=== PATIENT | female | born 1980 | race American Indian/Alaskan Native ===

== ENCOUNTER 2018-06-30 09:13 | Emergency (ER) | payer SELFPAY ==
[2018-06-30 09:27] VITALS: BP 143/97
[2018-06-30 10:23] LABS: HCG Qualitative,Urine Negative (Negative)
[2018-06-30 10:27] LABS: Bacteria,Urine 2+ /HPF (Negative); Bilirubin,Urine NEG (Negative); Blood,Urine LG (Negative); Color,Urine Yellow (Yellow); Mucus,Urine 2+ /HPF
[2018-06-30 10:30] LABS: RBC,Urine > 182.0 /HPF (0.0-6.0)
--- NOTE | 2018-06-30 10:40 | Emergency Department Report ---
ED Female HPI - General Chief complaint: Abdominal Pain Stated complaint: LOWER ABD/BACK PAIN Time Seen by Provider: 06/30/18 09:37 Source: patient Mode of arrival: Ambulatory Limitations: No Limitations - History of Present Illness Initial comments: Patient is a 37-year-old [place] female who is presenting with mild suprapubic discomfort and urinary frequency for the past 2 days. Patient denies any nausea vomiting diarrhea. Patient states there is no vaginal discharge at this time. Patient does also have some urinary frequency and states only a small amount of urine is able to be passed at a time but she is going very frequently. Patient states the lower abdominal discomfort as 4 out of 10 in severity. - Related Data Previous Rx's Medication Instructions Recorded Last Taken Type Nitrofurantoin Monohyd/M-Cryst 100 mg PO BID #14 capsule 06/30/18 Unknown Rx [Macrobid 100 mg Capsule] Phenazopyridine [Pyridium] 100 mg PO TID 2 Days tab 06/30/18 Unknown Rx Allergies Allergy/AdvReac Type Severity Reaction Status Date / Time pineapple Allergy Swelling Verified 06/30/18 09:25 ED Review of Systems ROS: Stated complaint: LOWER ABD/BACK PAIN Other details as noted in HPI Comment: All other systems reviewed and negative ED Past Medical Hx - Past Medical History Previous Medical History?: No - Surgical History Additional Surgical History: polyps removed from fallopian tubes - Social History Smoking Status: Never Smoker Substance Use Type: None - Medications Home Medications: Home Medications Medication Instructions Recorded Confirmed Last Taken Type Nitrofurantoin Monohyd/M-Cryst 100 mg PO BID #14 capsule 06/30/18 Unknown Rx [Macrobid 100 mg Capsule] Phenazopyridine [Pyridium] 100 mg PO TID 2 Days tab 06/30/18 Unknown Rx ED Physical Exam - General Limitations: No Limitations General appearance: alert, in no apparent distress - Head Head exam: Present: atraumatic, normocephalic - Eye Eye exam: Present: normal appearance - ENT ENT exam: Present: mucous membranes moist - Neck Neck exam: Present: normal inspection - Respiratory Respiratory exam: Present: normal lung sounds bilaterally. Absent: respiratory distress, wheezes, rales, rhonchi, stridor - Cardiovascular Cardiovascular Exam: Present: regular rate, normal rhythm. Absent: systolic murmur, diastolic murmur, rubs, gallop - GI/Abdominal GI/Abdominal exam: Present: soft, normal bowel sounds. Absent: distended, tenderness, guarding, rebound - Extremities Exam Extremities exam: Present: normal inspection - Back Exam Back exam: Present: normal inspection - Neurological Exam Neurological exam: Present: alert, oriented X3 - Psychiatric Psychiatric exam: Present: normal affect, normal mood - Skin Skin exam: Present: warm, dry, intact, normal color. Absent: rash ED Course Vital Signs 06/30/18 09:25 Temperature 98.6 F Pulse Rate 78 Respiratory 18 Rate Blood Pressure 143/97 O2 Sat by Pulse 98 Oximetry ED Medical Decision Making - Lab Data Lab Results 06/30/18 Range/Units 10:00 Urine Color Yellow (Yellow) Urine Turbidity Cloudy (Clear) Urine pH 6.0 (5.0-7.0) Ur Specific [place] 1.023 (1.003-1.030) Urine Protein 100 mg/dl (Negative) mg/dL Urine Glucose (UA) Neg (Negative) mg/dL Urine Ketones Neg (Negative) mg/dL Urine Blood Lg (Negative) Urine Nitrite Neg (Negative) Ur Reducing Substances Not Reportable Urine Bilirubin Neg (Negative) Urine Ictotest Not Reportable Urine Urobilinogen 4.0 (<2.0) mg/dL Ur Leukocyte Esterase Sm (Negative) Urine WBC (Auto) 9.0 H (0.0-6.0) /HPF Urine RBC (Auto) > 182.0 (0.0-6.0) /HPF U Epithel Cells (Auto) 8.0 (0-13.0) /HPF Urine Bacteria (Auto) 2+ (Negative) /HPF Urine Mucus 2+ /HPF Urine HCG, Qual Negative (Negative) - Medical Decision Making She does have a mild urinary tract infection per laboratory studies. Patient was started on Macrobid admits for symptomatic relief and will be discharged home. Critical care attestation.: If time is entered above; I have spent that time in minutes in the direct care of this critically ill patient, excluding procedure time. ED Disposition Clinical Impression: Acute cystitis Qualifiers: Hematuria presence: with hematuria Qualified Code(s): N30.01 - Acute cystitis with hematuria Disposition: TO HOME OR SELFCARE Is pt being admited?: No Does the pt Need Aspirin: No Condition: Stable Instructions: Urinary Tract Infection in Women (ED) Referrals: PRIMARY CARE, [Primary Care Provider] - 3-5 Days Time of Disposition: 10:44
== END 2018-06-30 10:54 | disposition home or self-care (01) ==
LOC: ED 09:13
DX: N30.01 Acute cystitis with hematuria (principal); Z91.018 Allergy to other foods
CPT/HCPCS: 81001; 81025; 99283

== ENCOUNTER 2020-11-18 22:35 | Emergency (ER) | payer MEDICAID ==
[2020-11-18 23:05] VITALS: BP 146/94
[2020-11-18] MEDS ORDERED: diphenhydrAMINE 50 MG/ML VIAL IV ONE (23:11)
[2020-11-18] MEDS ORDERED: SODIUM CHLORIDE 0.9% 1000 ML 1,000 ML IV ONE (23:11)
[2020-11-18] MEDS ORDERED: METOCLOPRAMIDE 10 MG/2 ML INJ IV ONE (23:11)
[2020-11-18] MEDS ORDERED: FAMOTIDINE 20 MG/2 ML INJ IV ONE (23:11)
--- NOTE | 2020-11-18 23:13 | Emergency Department Report ---
ED N/V/D HPI - General Chief complaint: Nausea/Vomiting/Diarrhea Stated complaint: 7 1/2WKS PREG; VOMITING BLOOD Source: patient Mode of arrival: Ambulatory Limitations: No Limitations - History of Present Illness Initial comments: Patient is a A2 29-year-old -[place] female with no past medical history and who is approximately 7 weeks gestation presents to the ED with complaint of acute onset persistent intractable nausea and vomiting with lower abdominal pain for the last 2 days. Patient states that she has not been able to keep anything down including fluids and food because of persistent severe intractable nausea and vomiting. Patient denies vaginal bleeding, dizziness, syncope, headache, chest pain, shortness of breath, sore throat, back pain, dysuria, urinary frequency and urgency, vaginal discharge, low back pain, diarrhea or hematemesis. MD complaint: nausea, vomiting, abdominal pain -: Sudden, days(s) (2) Description of Vomiting: food contents, watery Associated Abdominal Pain: Yes (Lower) Location: diffuse Radiation: none Severity: severe Pain Scale: 7 Quality: cramping, aching, sharp Consistency: constant Improves with: none Worsens with: eating, vomiting Context: other (7 weeks gestation) Associated Symptoms: denies other symptoms, myalgias, headaches, loss of appetite, malaise, nausea/vomiting. denies: chest pain, cough, diaphoresis, fever/chills, rash, dysuria, shortness of breath, syncope, weakness - Related Data Previous Rx's Medication Instructions Recorded Last Taken Type Nitrofurantoin Monohyd/M-Cryst 100 mg PO BID #14 capsule 06/30/18 Unknown Rx [Macrobid 100 mg Capsule] Phenazopyridine [Pyridium] 100 mg PO TID 2 Days tab 06/30/18 Unknown Rx Famotidine [Pepcid] 20 mg PO BID #60 tablet 11/19/20 Unknown Rx Metoclopramide [Reglan] 10 mg PO TID PRN #30 tab 11/19/20 Unknown Rx Promethazine [Phenergan] 25 mg MI Q6HR PRN #20 supp.rect 11/19/20 Unknown Rx Allergies Allergy/AdvReac Type Severity Reaction Status Date / Time pineapple Allergy Swelling Verified 06/30/18 09:25 ED Review of Systems ROS: Stated complaint: 7 1/2WKS PREG; VOMITING BLOOD Other details as noted in HPI Constitutional: denies: chills, fever Eyes: denies: eye pain, eye discharge, vision change ENT: denies: ear pain, throat pain Respiratory: denies: cough, shortness of breath, wheezing Cardiovascular: denies: chest pain, palpitations Endocrine: no symptoms reported Gastrointestinal: abdominal pain, nausea, vomiting. denies: diarrhea Genitourinary: denies: urgency, dysuria, discharge Musculoskeletal: denies: back pain, joint swelling, arthralgia Skin: denies: rash, lesions Neurological: denies: headache, weakness, paresthesias Psychiatric: denies: anxiety, depression Hematological/Lymphatic: denies: easy bleeding, easy bruising ED Past Medical Hx - Past Medical History Previous Medical History?: No - Surgical History Past Surgical History?: Yes Additional Surgical History: polyps removed from fallopian tubes - Social History Smoking Status: Never Smoker Substance Use Type: None - Medications Home Medications: Home Medications Medication Instructions Recorded Confirmed Last Taken Type Nitrofurantoin Monohyd/M-Cryst 100 mg PO BID #14 capsule 06/30/18 Unknown Rx [Macrobid 100 mg Capsule] Phenazopyridine [Pyridium] 100 mg PO TID 2 Days tab 06/30/18 Unknown Rx Famotidine [Pepcid] 20 mg PO BID #60 tablet 11/19/20 Unknown Rx Metoclopramide [Reglan] 10 mg PO TID PRN #30 tab 11/19/20 Unknown Rx Promethazine [Phenergan] 25 mg MI Q6HR PRN #20 supp.rect 11/19/20 Unknown Rx ED Physical Exam - General Limitations: No Limitations General appearance: alert, in no apparent distress - Head Head exam: Present: atraumatic, normocephalic, normal inspection - Eye Eye exam: Present: normal appearance, PERRL, EOMI Pupils: Present: normal accommodation - ENT ENT exam: Present: normal exam, normal orophraynx, mucous membranes moist, TM's normal bilaterally, normal external ear exam - Neck Neck exam: Present: normal inspection, full ROM - Respiratory Respiratory exam: Present: normal lung sounds bilaterally. Absent: respiratory distress, wheezes, rales, rhonchi, chest wall tenderness, accessory muscle use, decreased breath sounds, prolonged expiratory - Cardiovascular Cardiovascular Exam: Present: regular rate, normal rhythm, normal heart sounds. Absent: systolic murmur, diastolic murmur, rubs, gallop - GI/Abdominal GI/Abdominal exam: Present: soft, tenderness (Palpable mild suprapubic tenderness), normal bowel sounds. Absent: distended, guarding, rebound, rigid, hyperactive bowel sounds - Extremities Exam Extremities exam: Present: normal inspection, full ROM, normal capillary refill - Back Exam Back exam: Present: normal inspection, full ROM. Absent: tenderness, CVA tenderness (R), CVA tenderness (L), muscle spasm, paraspinal tenderness, vertebral tenderness - Neurological Exam Neurological exam: Present: alert, oriented X3, CN II-XII intact, normal gait, reflexes normal - Psychiatric Psychiatric exam: Present: normal affect, normal mood - Skin Skin exam: Present: warm, dry, intact, normal color. Absent: rash ED Course Vital Signs 11/18/20 23:04 Temperature 98.9 F Pulse Rate 89 Respiratory 17 Rate Blood Pressure 146/94 O2 Sat by Pulse 95 Oximetry ED Medical Decision Making - Lab Data Result diagrams: 11/18/20 23:15 11/18/20 23:15 - Radiology Data Radiology results: report reviewed, image reviewed Findings [facility] [address] [place] [address] Ultrasound Report Signed Patient: JEANINE MACHADO MR#: [id number] : 1980 Acct:[id number] Age/Sex: 39 / F ADM Date: 11/18/20 Loc: ED Attending Dr: Ordering Physician: BLAIR HAGER III, MD Date of Service: 11/19/20 Procedure(s): US OB <= 14 wk fetus add gest Accession Number(s): [id number] cc: BLAIR HAGER III, MD US OB <= 14 wk fetus add gest INDICATION: PER PROTOCOL. TECHNIQUE: Transabdominal and transvaginal ultrasound obtained COMPARISON: None available. FINDINGS: There are 2 poles in the uterus. Twin a measures 5.1 mm in crown-rump length which corresponds to 6 weeks, 2 days. heart rate measures 1 44 bpm. Twin B measures 9.1 mm in crown rump length which corresponds to 6 weeks, 6 days. heart rate measures 1 52 bpm. Bilateral adnexa appear normal. IMPRESSION: 1. Twin as described above. Signer Name: Anthony Rivera MD Signed: 11/19/2020 1:18 AM Workstation Name: [id number] Transcribed By: MU Dictated By: Anthony Rivera MD Electronically Authenticated By: Anthony Rivera MD Signed Date/Time: 11/19/20117 DD/ 7 TD/TT: - Medical Decision Making This is a A2 29-year-old -[place] female with no past medical history and who is approximately 7 weeks gestation presents to the ED with complaint of acute onset persistent intractable nausea and vomiting with lower abdominal pain for the last 2 days. Patient states that she has not been able to keep anything down including fluids and food because of persistent severe intractable nausea and vomiting. In the ED, patient is alert and oriented x3 and is not in distress. Patient was treated for nausea and vomiting and also received normal saline 1 L IV bolus x1. Lab test results were reviewed and showed mild leukocytosis of 11,400 and hCG quant of [id number]. The rest the lab test results are nonactionable. Transvaginal ultrasound showed 2 poles in the uterus. Twin a measures 5.1 mm in crown-rump length which corresponds to 6 weeks, 2 days. heart rate measures 1 44 bpm. Twin B measures 9.1 mm in cr own rump length which corresponds to 6 weeks, 6 days. heart rate measures 1 52 bpm. Bilateral adnexa appear normal. On reevaluation, patient nausea and vomiting resolved with medications. Patient is hemodynamically stable and was discharged home on antiemetics and antacids and advised to maintain a clear liquid diet for 12 to 24 hours, follow-up with her [employer] physician in 3 to 5 days for reevaluation. Patient was advised return to the ED immediately if symptoms get worse. - Differential Diagnosis Dehydration; hyperemesis gravidarum; UTI; GERD; Critical care attestation.: If time is entered above; I have spent that time in minutes in the direct care of this critically ill patient, excluding procedure time. ED Disposition Clinical Impression: Abdominal pain during in first trimester, Hyperemesis gravidarum Disposition: -01 TO HOME OR SELFCARE Is pt being admited?: No Does the pt Need Aspirin: No Condition: Stable Instructions: Abdominal Pain During , [id number], Hyperemesis Gravidarum, Morning Sickness, [id number] Additional Instructions: All lab test results were reviewed and are all nonactionable. Therefore maintain a clear liquid diet for 12 to 24 hours, drink plenty of fluids and follow-up with the [employer] physician in 3 to 5 days for reevaluation. Return to the ED immediately if symptoms get worse. The transvaginal ultrasound showed twin of approximately 6 weeks and 3 days. Therefore return to the ED immediately if symptoms get worse. Prescriptions: Famotidine [Pepcid] 20 mg PO BID #60 tablet Promethazine [Phenergan] 25 mg MI Q6HR PRN #20 supp.rect PRN Reason: Nausea And Vomiting Metoclopramide [Reglan] 10 mg PO TID PRN #30 tab PRN Reason: Nausea And Vomiting Time of Disposition: 04:28 Print Language: CONGOLESE
[2020-11-18 23:48] LABS: Basophils # (Auto) 0.2 K/mm3 (0.0-0.1); Basophils % (Auto) 1.4 % (0.0-1.8); Eosinophils % (Auto) 0.1 % (0.0-4.3); Hematocrit 40.8 % (30.3-42.9); Hemoglobin 13.9 gm/dl (10.1-14.3); Lymphocytes # (Auto) 1.8 K/mm3 (1.2-5.4); Lymphocytes % (Auto) 15.7 % (13.4-35.0); Mean Corpuscular HGB Conc 34 % (30-34); Mean Corpuscular Volume 88 fl (79-97); Monocytes # (Auto) 0.8 K/mm3 (0.0-0.8); Monocytes % (Auto) 7.4 % (0.0-7.3); Platelet Count 282 K/mm3 (140-440); Red Blood Count 4.66 M/mm3 (3.65-5.03)
[2020-11-18 23:56] LABS: Alanine Aminotransferase 8 units/L (7-56); Albumin 4.3 g/dL (3.9-5); Blood Urea Nitrogen 8 mg/dL (7-17); Calcium 9.4 mg/dL (8.4-10.2); Hemolysis Index 0
[2020-11-19 00:31] LABS: BUN/Creatinine Ratio 13
--- NOTE | 2020-11-19 00:42 | Ultrasound Report ---
US OB transvaginal, US OB followup ea add gestat INDICATION: Abdominal pain, N/V, . TECHNIQUE: Transabdominal and transvaginal ultrasound obtained COMPARISON: None available. FINDINGS: There are 2 poles in the uterus. Twin a measures 5.1 mm in crown-rump length which corresponds to 6 weeks, 2 days. heart rate me asures 1 44 bpm. Twin B measures 9.1 mm in crown rump length which corresponds to 6 weeks, 6 days. heart rate me asures 1 52 bpm. Bilateral adnexa appear normal. IMPRESSION: 1. Twin as described above. Signer Name: Anthony Rivera MD Signed: 11/19/2020 12:37 AM Workstation Name: [id number]
--- NOTE | 2020-11-19 01:23 | Ultrasound Report ---
US OB <= 14 wk fetus add gest INDICATION: PER PROTOCOL. TECHNIQUE: Transabdominal and transvaginal ultrasound obtained COMPARISON: None available. FINDINGS: There are 2 poles in the uterus. Twin a measures 5.1 mm in crown-rump length which corresponds to 6 weeks, 2 days. heart rate me asures 1 44 bpm. Twin B measures 9.1 mm in crown rump length which corresponds to 6 weeks, 6 days. heart rate me asures 1 52 bpm. Bilateral adnexa appear normal. IMPRESSION: 1. Twin as described above. Signer Name: Anthony Rivera MD Signed: 11/19/2020 1:18 AM Workstation Name: [id number]
[2020-11-19 01:58] LABS: Bilirubin,Urine NEG (Negative); Blood,Urine NEG (Negative); Color,Urine Yellow (Yellow); Mucus,Urine 3+ /HPF
--- NOTE | 2020-11-19 11:10 | Ultrasound Report ---
US OB <= 14 weeks fetus INDICATION / CLINICAL INFORMATION: Abdominal pain, N/V . COMPARISON: None available. FINDINGS: Viable twin is noted. Yolk sac is visualized. Maternal ovaries not visualized. No adnexal lesions or free fluid. IMPRESSION: 1. Viable twin pregnancies. No abnormalities are identified. Signer Name: Lan Patterson MD Signed: 11/19/2020 11:06 AM Workstation Name: [id number]
== END 2020-11-19 05:00 | disposition home or self-care (01) ==
LOC: ED 22:35
DX: O21.0 Mild hyperemesis gravidarum (principal); O26.891 Other specified pregnancy related conditions, first trimester; R10.30 Lower abdominal pain, unspecified; Z3A.01 Less than 8 weeks gestation of pregnancy; Z98.890 Other specified postprocedural states; Z79.899 Other long term (current) drug therapy; Z91.018 Allergy to other foods
CPT/HCPCS: 36415; 76801; 76802; 76816; 76817; 80053; 81001; 84702; 85025; 96361; 96374; 96375; 99284; J1200; J2765; J7030